=== PATIENT | female | born 1950 | race Caucasian/White ===

== ENCOUNTER 2024-11-14 12:46 | Emergency (ER) | payer MEDICARE, OTHER ==
[~2024-11-14] VITALS: Ht 167.6 cm; Wt 72.6 kg
[2024-11-14] MEDS ORDERED: Ketorolac Tromethamine 15mg Vial IM ONE ×2 (13:00→15:35)
[2024-11-14] MEDS ORDERED: Lidocaine 4% 1 Patch TOP ONE ×2 (13:05→15:35)
[2024-11-14] MEDS ORDERED: Methocarbamol 500 MG Tab PO ONE (16:00)
[2024-11-14] MEDS ORDERED: Robaxin750 MG PO (16:08)
[2024-11-14] MEDS ORDERED: LIDO700A20 TOP (16:08)
== END 2024-11-14 16:26 | disposition home or self-care (01) ==
LOC: ER 12:46
DX: S20.212A Contusion of left front wall of thorax, initial encounter (principal); Z88.0 Allergy status to penicillin; Z88.5 Allergy status to narcotic agent; Z59.89 Other problems related to housing and economic circumstances; W11.XXXA Fall on and from ladder, initial encounter; Y93.H2 Activity, gardening and landscaping
CPT/HCPCS: 71046; 99283-25; A9270; J1885